=== PATIENT | male | born 1985 ===

== ENCOUNTER 2018-07-13 19:04 | Emergency (ER) | payer OTHER ==
[2018-07-13 19:51] VITALS: RESP 18
--- NOTE | 2018-07-13 19:59 | ED PDOC ---
Arrival/HPI - General Chief Complaint: Back Pain Time Seen by Provider: 07/13/18 19:50 Past Medical History - Psychiatric Hx Substance Use: No - Anesthesia Hx Anesthesia: No Hx Anesthesia Reactions: No Hx Malignant Hyperthermia: No Family/Social History Smoking Status: Never Smoked Hx Alcohol Use: No Hx Substance Use: No Allergies/Home Meds Allergies/Adverse Reactions: Allergies No Known Allergies Allergy (Verified 07/13/18 19:48) Physical Exam Vital Signs Temp Pulse Resp BP Pulse Ox 07/13/18 19:04 98.1 F 67 18 153/81 H 99 Medical Decision Making - Medication Orders Current Medication Orders: Diazepam (Valium) 5 mg PO STAT STA PRN Reason: Protocol Stop: 07/13/18 19:54 Ketorolac Tromethamine (Toradol) 60 mg IM STAT STA Stop: 07/13/18 19:54 Disposition/Present on Arrival - Present on Arrival Any Indicators Present on Arrival: No History of DVT/PE: No History of Uncontrolled Diabetes: No Urinary Catheter: No History of Decub. Ulcer: No History Surgical Site Infection Following: None - Disposition Have Diagnosis and Disposition been Completed?: Yes Diagnosis: Muscle spasm, Back pain Disposition: HOME/ ROUTINE Disposition Time: 19:57 Patient Plan: Discharge Condition: GOOD Discharge Instructions (ExitCare): Muscle Spasms (DC), Low Back Pain in Adults , Back Exercises Print Language: FRENCH Additional Instructions: Follow-up with PMD within 2 days. Return to ED if condition worsens. Take medication for pain. Prescriptions: Cyclobenzaprine [Cyclobenzaprine HCl] 10 mg PO TID #20 tab Forms: [facility] (Lebanese), WORK NOTE
--- NOTE | 2018-07-13 20:01 | ED PDOC ---
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 Patient denies any numbness or tingling. He denies any focal weakness. He denies change in bladder or bowel habits. Denies gait changes. Denies fever , chills, chest pain, shortness of breath, nausea, vomiting, neck pain, headache , dizziness, or any other complaints. Mixer Crane Operator: Janett 07/13/18 22:16 Time/Duration: Other (last night ) Symptom Onset: Gradual Symptom Course: Unchanged Context: Home Past Medical History - Provider Review Nursing Documentation Reviewed: Yes - Psychiatric Hx Substance Use: No - Anesthesia Hx Anesthesia: No Hx Anesthesia Reactions: No Hx Malignant Hyperthermia: No Family/Social History - Physician Review Nursing Documentation Reviewed: Yes Family/Social History: Unknown Family HX Smoking Status: Never Smoked Hx Alcohol Use: No Hx Substance Use: No Allergies/Home Meds Allergies/Adverse Reactions: Allergies No Known Allergies Allergy (Verified 07/13/18 19:48) Review of Systems - Physician Review All systems were reviewed & negative as marked: Yes - Review of Systems Constitutional: absent: Fatigue, Weight Change, Fevers, Night Sweats Respiratory: absent: SOB, Cough, Sputum, Wheezing Cardiovascular: absent: Chest Pain Gastrointestinal: absent: Abdominal Pain, Constipation, Diarrhea, Nausea, Vomiting Genitourinary Male: absent: Dysuria, Frequency, Hematuria, Urinary Output Changes Musculoskeletal: Back Pain. absent: Neck Pain Skin: absent: Rash, Pruritis Neurological: absent: Headache, Dizziness Psychiatric: absent: Anxiety, Depression Physical Exam Vital Signs Reviewed: Yes Vital Signs Temp Pulse Resp BP Pulse Ox 07/13/18 20:46 98.3 F 65 18 137/82 100 07/13/18 19:04 98.1 F 67 18 153/81 H 99 Temperature: Afebrile Blood Pressure: Hypertensive Pulse: Regular Respiratory Rate: Normal Appearance: Positive for: Well-Appearing, Non-Toxic, Comfortable Pain Distress: None Mental Status: Positive for: Alert and Oriented X 3 - Systems Exam Head: Present: Atraumatic, Normocephalic Pupils: Present: PERRL Extroacular Muscles: Present: EOMI Conjunctiva: Present: Normal Mouth: Present: Moist Mucous Membranes Neck: Present: Normal Range of Motion Respiratory/Chest: Present: Clear to Auscultation, Good Air Exchange. No: Respiratory Distress, Accessory Muscle Use Cardiovascular: Present: Regular Rate and Rhythm, Normal S1, S2. No: Murmurs Abdomen: No: Tenderness, Distention, Peritoneal Signs Back: Present: Other (paraspinal lumbar spasm). No: Normal Inspection, CVA Tenderness, Midline Tenderness, Paraspinal Tenderness, Pain with Leg Raise, Decubitus Ulcer Upper Extremity: Present: Normal Inspection. No: Cyanosis, Edema Lower Extremity: Present: Normal Inspection. No: Edema Neurological: Present: GCS=15, CN II-XII Intact, Speech Normal Skin: Present: Warm, Dry, Normal Color. No: Rashes Psychiatric: Present: Alert, Oriented x 3, Normal Insight, Normal Concentration Medical Decision Making ED Course and Treatment: 07/13/18 20:05 Impression: 33 year old male prseenting to the Emergency department complaining of back pain Plan: -- Valium -- Toradol -- Reassess and disposition Prior Visits: Notes and results from previous visits were reviewed. Patient was last seen in the emergency department on Progress Notes: Patient neurologically intact with back pain worse with movement. Tenderness on exam consistent with muscle spasm. - Medication Orders Current Medication Orders: Discontinued Medications Diazepam (Valium) 5 mg PO STAT STA PRN Reason: Protocol Stop: 07/13/18 19:54 Last Admin: 07/13/18 20:08 Dose: 5 mg Ketorolac Tromethamine (Toradol) 60 mg IM STAT STA Stop: 07/13/18 19:54 Last Admin: 07/13/18 20:08 Dose: 60 mg MAR Pain Assessment Document 07/13/18 20:08 GOEVANY (Rec: 07/13/18 20:09 GEOVANY [id number]) Pain Reassessment Is this a pain reassessment? No Sleep Is patient sleeping during reassessment? No Presence of Pain Presence of Pain Yes Pain Scale Used Pain Scale Used Numeric Location Upper or Lower Lower Pain Location Body Site Back Description Description Intermittent Intensity of Pain at present 8 Pain Behavior Guarding IM Administration Charges Document 07/13/18 20:08 LA (Rec: 07/13/18 20:09 LA [id number]) Injection Site MAR Injection Site Right Gluteus Fantasma Charges for Administration # of IM Administrations 1 - Scribe Statement The provider has reviewed the documentation as recorded by the Melloibe Colleen Jc All medical record entries made by the Scribe were at my direction and personally dictated by me. I have reviewed the chart and agree that the record accurately reflects my personal performance of the history, physical exam, medical decision making, and the department course for this patient. I have also personally directed, reviewed, and agree with the discharge instructions and disposition. Disposition/Present on Arrival - Present on Arrival Any Indicators Present on Arrival: No History of DVT/PE: No History of Uncontrolled Diabetes: No Urinary Catheter: No History of Decub. Ulcer: No History Surgical Site Infection Following: None - Disposition Have Diagnosis and Disposition been Completed?: Yes Diagnosis: Muscle spasm, Back pain Disposition: HOME/ ROUTINE Disposition Time: 20:50 Patient Plan: Discharge Condition: GOOD Discharge Instructions (ExitCare): Low Back Pain in Adults, Back Exercises, Muscle Spasms (DC) Print Language: ALBANIAN Additional Instructions: Follow-up with PMD within 2 days. Return to ED if condition worsens. Take medication for pain. Prescriptions: Cyclobenzaprine [Cyclobenzaprine HCl] 10 mg PO TID #20 tab Forms: [facility] (Kittitian), WORK NOTE
[2018-07-13 20:47] VITALS: BP 137/82; PULSE 65; TEMP 98.3; O2SAT 100
== END 2018-07-13 20:46 | disposition home or self-care (01) ==
LOC: ED 19:04
DX: M54.5 Low back pain (principal); M62.838 Other muscle spasm
CPT/HCPCS: 96372; 99283; J1885